=== PATIENT | female | born 2005 | race Caucasian/White ===

== ENCOUNTER 2025-03-05 10:38 | Emergency (ER) | payer OTHER, SELFPAY ==
[2025-03-05 10:41] VITALS: BP 156/94
[2025-03-05 11:32] VITALS: BP 116/73; BMI 24.5
[2025-03-05 12:05] LABS: % Basophils 0.3 % (0-2); % Eosinophils 0.3 % (0-6); % Immature Granulocytes 0.6 % (0-0.5); % Lymphocytes 12.9 % (20.5-51.1); % Monocytes 4.3 % (1.7-9.3); % Neutrophils 81.6 % (42.2-75.2); Absolute Immature Granulocytes 0.1 10^3/uL (0-0.05); Absolute Lymphocytes 1.5 10^3/uL (1.2-3.4); Absolute Monocytes 0.5 10^3/uL (0.1-0.6); Absolute Neutrophils 9.1 10^3/uL (1.4-6.5); Hematocrit 33.2 % (37.0-47.0); Hemoglobin 11.7 g/dL (12.0-16.0); Mean Corp Hgb Conc. 35.2 g/dL (33.0-37.0); Mean Corpuscular Hgb 30.2 pg (27.0-31.0); Mean Corpuscular Volume 85.6 fL (81.0-99.0); Nucleated Red Blood Cells % 0 %; Platelet Count 316 10^3/uL (130-400); Red Blood Cell Count 3.88 10^6/uL (4.20-5.40); Red Cell Dist. Width 13.4 % (11.5-14.5); White Blood Cell Count 11.2 10^3/uL (4.8-10.8)
[2025-03-05 12:26] LABS: ALT (SGPT) 11 U/L (0-35); AST (SGOT) 18 U/L (14-36); Albumin 3.9 g/dl (3.5-5.0); Alkaline Phosphatase 29 U/L (38-126); Blood Urea Nitrogen 6 mg/dl (7-17); Calcium 9.8 mg/dl (8.4-10.2); Carbon Dioxide 23 mmol/L (22-30); Chloride 107 mmol/L (98-107); Estimated Creatinine Clearance 108 ml/min; Glucose 82 mg/dl (70-99); Potassium 3.9 mmol/L (3.5-5.1); Sodium 138 mmol/L (135-145); Total Bilirubin 0.3 mg/dl (0.2-1.3); Total Protein 6.9 g/dl (6.3-8.2); eGFR > 60.00
[2025-03-05 12:29] LABS: Urine Albumin Negative (Neg - Trace); Urine Bilirubin Negative (Negative); Urine Character Clear (Clear); Urine Color Yellow; Urine Glucose Negative (Negative); Urine Ketone Negative (Negative); Urine Leukocyte 3+ (Negative); Urine Nitrite Negative (Negative); Urine Occult Blood Negative (Negative); Urine Urobilinogen Negative (Neg - 1+)
[2025-03-05 12:36] LABS: Urine Squamous Cell 26-30 /LPF (Few); Urine Urothelial Cell 0-2 /LPF (FEW)
[2025-03-05 12:38] LABS: Urine Red Blood Cell 0-2 /HPF (0-2)
[2025-03-05 12:40] LABS: Urine Bacteria Few (Negative)
--- NOTE | 2025-03-05 13:16 | ED.GENMED ---
History of Present Illness
General
Chief Complaint: Problems
Source: patient
Exam Limitations: none
Time Seen by Provider: 03/05/25 11:04
History of Present Illness
History of Present Illness:
Patient complaining of intermittent headaches. Has a long history of migraines these headaches feel similar but more frequent and somewhat worse. Blood pressure was checked at the base and was noted to be elevated. She also apparently had an
elevated blood pressure in November of this year. No other complaints, denying double vision abdominal pain vaginal bleeding focal neurologic symptoms etc.
Past History
Past History
ED Past Medical History: Other (Migraines)
Review of Systems
Review of Systems
All Other Systems: Not applicable
Constitutional: Denies fever
Respiratory: Reports no symptoms
Cardiac: Reports no symptoms
Phy Exam
Physical Exam
Physical Exam:
GENERAL: Alert and oriented in no apparent distress
EYE: Orbits normal. Discharge. Extraocular muscles intact
NECK: Supple, no significant adenopathy.
ENT: Pharynx without erythema
CARDIAC: Regular rate and rhythm without any obvious murmurs.
LUNGS: Clear breath sounds,normal
ABDOMEN: Soft, without focal tenderness or distention. Slight suprapubic fullness.
NEUROLOGICAL: Alert and oriented , grossly non-focal
SKIN: Warm and dry, no rash or lesion, no discoloration, skin intact.
MUSCULOSKELETAL: No edema,no deformity.Good color
PSYCH: Normal and appropriate interaction.
Course
Orders/Labs/Results
Orders:
Orders
03/05/25 11:33
IV Insert/Care/Rem.- Treatment PRN
US 2nd/3rd Trimester Urgent
Comment:
Reason For Exam: Hypertension/headaches/no care
03/05/25 11:53
Complete Blood Count/With Diff Urgent
Comprehensive Metabolic Panel Urgent
Urinalysis Reflex To Culture Urgent
Date Specimen was Collected: 03/05/25
Time Specimen was Collected: 11:36
Urine Microscopic Reflex Cult Urgent
Urine Culture Urgent
RAÚL Source: U
Specimen Description:
Date Specimen was Collected: 03/05/25
Time Specimen was Collected: 11:36
Abnormal Lab Results
03/05/25
11:53
WBC 11.2 H 10^3/uL
(4.8-10.8)
RBC 3.88 L 10^6/uL
(4.20-5.40)
Hgb 11.7 L g/dL
(12.0-16.0)
Hct 33.2 L %
(37.0-47.0)
Abs Immat Gran (auto) 0.1 H 10^3/uL
(0-0.05)
Absolute Neuts (auto) 9.1 H 10^3/uL
(1.4-6.5)
Immature Gran % 0.6 H %
(0-0.5)
Neutrophils % 81.6 H %
(42.2-75.2)
Lymphocytes % 12.9 L %
(20.5-51.1)
BUN 6 L mg/dl
(7-17)
Creatinine 0.5 L mg/dL
(0.6-1.0)
Alkaline Phosphatase 29 L U/L
(38-126)
Leukocyte Esterase Rfl 3+ A
(Negative)
Urine WBC (Reflex) 11-15 A /HPF
(0-5)
Urine Bacteria (Reflex) Few A
(Negative)
03/05/25 11:53
03/05/25 11:53
Vital Signs
Initial and Last Documented VS:
Initial Vital Signs
Temp Pulse Resp BP Pulse Ox
98.0 F 110 16 156/94 98
03/05/25 10:41 03/05/25 10:41 03/05/25 10:41 03/05/25 10:41 03/05/25 10:41
Last Documented Vital Signs
Temp Pulse Resp BP Pulse Ox
98.5 F 90 16 116/73 100
03/05/25 11:32 03/05/25 11:32 03/05/25 11:32 03/05/25 11:32 03/05/25 11:32
Information
Weeks gestation: Weeks: (17)
Location: Location: ([facility])
*Radiology
Radiology exam reviewed: radiology read reviewed (17-week [facility])
*Pulse Oximetry
Patient hypoxic: no
*Critical Care Note
Total Time (30-74mins, 75-104mins- exclusive of procedures): Not Applicable
Update Note
Update Note:
Patient stable. Ultrasound appropriate. No protein in the urine. Urine is contaminated. No UTI symptoms. LFTs are normal. Platelets are normal. Blood pressure is improved. Discussed with news broadcaster who will follow-up
ED Attending Note
-
Portions of this chart may have been created with voice recognition software.� Occasional wrong word or��sound alike� substitutions may have occurred due to the inherent limitations of voice recognition software.
Discharge Plan
Departure
Patient Disposition: Home (Routine Discharge)
Date of Disposition: 03/05/25
Time of Disposition: 13:16
Patient with high blood pressure during this ER visit?: Yes
Discharge Problem:
17 weeks, Headaches, Intermittent blood pressure elevations
Instructions: symptoms
Referrals:
Saurav Kuhn MD [Active] - Next open appointment
NONE,* [Family Provider] -
Activity Restrictions/Additional Instructions:
Tylenol only for the headaches
Call extension [phone] and speak to Day. Call [facility] for close follow-up for the
You also need to find a regular family physician for follow-up
Return with unusual headaches worsening headaches. Return with any headaches associated with other neurologic symptoms visual issues etc.
Interventions
Interventions:
*Risk Screen - Suicide Last Done: 03/05/25 10:41
*General Assessment Last Done: 03/05/25 11:32
*Neglect/Abuse Screening Last Done: 03/05/25 10:41
*ED- Fall Risk Assessment Last Done: 03/05/25 11:32
*ED COVID-19 Vaccine History Last Done: 03/05/25 11:32
ED-Female Genitourinary Assessment Last Done: 03/05/25 11:32
ED- Neurological Assessment Last Done: 03/05/25 11:32
Discharge Date and Time
Print Language: AUSTRIAN
[2025-03-05 13:22] VITALS: BP 116/64
== END 2025-03-05 13:45 | disposition home or self-care (01) ==
LOC: EMR 10:38
PROVIDERS: EMERGENCY PHYSICIAN Emergency Medicine
DX: O99.891 Other specified diseases and conditions complicating pregnancy (principal); R51.9 Headache, unspecified; R03.0 Elevated blood-pressure reading, without diagnosis of hypertension; O09.32 Supervision of pregnancy with insufficient antenatal care, second trimester; Z3A.17 17 weeks gestation of pregnancy
CPT/HCPCS: 99284; 76805; 80053; 81003; 81015; 85025; 87086

== ENCOUNTER 2025-10-05 01:03 | Emergency (ER) | payer SELFPAY ==
[2025-10-05] VITALS (8 sets, daily range): BP systolic 105–161; BP diastolic 64–100; BMI 27.6
[2025-10-05 01:54] LABS: Urine Character Clear (Clear)
[2025-10-05 02:17] LABS: Urine Squamous Cell 16-20 /LPF (Few)
[2025-10-05] MEDS: TYLENOL 1000 MG PO (03:20)
--- NOTE | 2025-10-05 03:22 | ED.GENMED ---
History of Present Illness
<Gianni Norris MD, Resident - Last Filed: 10/05/25 06:16>
General
Chief Complaint: Blood Pressure Problem
Source: patient
Time Seen by Provider: 10/05/25 02:00
History of Present Illness
History of Present Illness:
Patient is a 20-year-old female who is 8 weeks with a PMH of migraines and hypertension who presents to the ED with a progressive frontal headache that patient noticed upon awakening from sleep around 9:30 PM this evening. The
headache was constant, frontal, gradually progressed from 5/10 to 8/10 intensity, and was associated with seeing spots in her vision. Light and sound make the headache worse. Given her history of hypertension, the headache prompted the
patient to take her blood pressure, which was elevated. On presentation, BP was 161/100. Patient has years long history of headaches, but they are typically more mild than this. She has never taken any medications for her headaches. Patient did
have a similar headache episode to this 2 weeks ago, which self resolved without evaluation or treatment. Patient did not have any history of hypertension prior to the delivery mid-July. During labor, patient became hypertensive. Patient's
blood pressure was subsequently evaluated for 5 weeks with home blood pressure monitoring. At the 5-week michael, patient was told her blood pressure was normal and no longer needed to monitor. Denies chest pain, shortness of breath, dysuria,
urgency, abdominal pain, N/V/D, vision loss, weakness, numbness, slurred speech, or seizure-like activity.
Past History
<Gianni Norris MD, Resident - Last Filed: 10/05/25 06:16>
Past History
ED Past Medical History: Other (Migraines) and Other ( hypertension)
Social History
Tobacco: Non-smoker
Alcohol: None
Drug: None
Living: with family
Review of Systems
<Gianni Norris MD, Resident - Last Filed: 10/05/25 06:16>
Review of Systems
Constitutional: Denies fever, fatigue or chills
Respiratory: Denies trouble breathing
Cardiac: Denies chest pain
ABD/GI: Denies abdominal pain, nausea, vomiting or diarrhea
: Denies dysuria or urgency
Neurological: Reports headache; Denies weakness or numbness
Phy Exam
<Gianni Norris MD, Resident - Last Filed: 10/05/25 06:16>
Physical Exam
Physical Exam:
General: NAD. Conversant.
Neuro: A&O x 3. Motor, sensory intact lower extremities. No dysmetria. CN II through XII grossly intact. EOMI. PERRLA.
CV: RRR. S1, S2 noted. No M/R/G.
Pulm: CTAB. No wheezes or crackles.
GI: Soft, nontender. Nondistended. No RUQ tenderness.
Psych: Calm.
Course
<Gianni Norris MD, Resident - Last Filed: 10/05/25 06:16>
Orders/Labs/Results
Orders:
Orders
10/05/25 01:42
Urinalysis Urgent
Date Specimen was Collected: 10/05/25
Time Specimen was Collected: 01:39
Urine Microscopic Urgent
Date Specimen was Collected: 10/05/25
Time Specimen was Collected: 01:39
10/05/25 03:18
Acetaminophen [Tylenol] 1,000 mg .ROUTE .STK-MED ONE
10/05/25 03:20
Acetaminophen [Tylenol] 1,000 mg PO NOW STA
Abnormal Lab Results
10/05/25
01:42
Ur Leukocyte Esterase 3+ A
(Negative)
Urine RBC 7-10 A /HPF
(0-2)
Urine WBC 11-15 A /HPF
(0-5)
Urine Bacteria Moderate A
(Negative)
Vital Signs
Initial and Last Documented VS:
Initial Vital Signs
Temp Pulse Resp BP Pulse Ox
98.7 F 86 20 161/100 100
10/05/25 01:12 10/05/25 01:12 10/05/25 01:12 10/05/25 01:12 10/05/25 01:12
Last Documented Vital Signs
Temp Pulse Resp BP Pulse Ox
98.7 F 76 22 105/64 95
10/05/25 01:12 10/05/25 04:43 10/05/25 04:43 10/05/25 04:43 10/05/25 04:43
<Jesusita Arambula DO - Last Filed: 10/05/25 04:21>
Orders/Labs/Results
Orders:
Orders
10/05/25 01:42
Urinalysis Urgent
Date Specimen was Collected: 10/05/25
Time Specimen was Collected: 01:39
Urine Microscopic Urgent
Date Specimen was Collected: 10/05/25
Time Specimen was Collected: 01:39
10/05/25 03:18
Acetaminophen [Tylenol] 1,000 mg .ROUTE .STK-MED ONE
10/05/25 03:20
Acetaminophen [Tylenol] 1,000 mg PO NOW STA
Abnormal Lab Results
10/05/25
01:42
Ur Leukocyte Esterase 3+ A
(Negative)
Urine RBC 7-10 A /HPF
(0-2)
Urine WBC 11-15 A /HPF
(0-5)
Urine Bacteria Moderate A
(Negative)
Vital Signs
Initial and Last Documented VS:
Initial Vital Signs
Temp Pulse Resp BP Pulse Ox
98.7 F 86 20 161/100 100
10/05/25 01:12 10/05/25 01:12 10/05/25 01:12 10/05/25 01:12 10/05/25 01:12
Last Documented Vital Signs
Temp Pulse Resp BP Pulse Ox
98.7 F 76 22 105/64 95
10/05/25 01:12 10/05/25 04:43 10/05/25 04:43 10/05/25 04:43 10/05/25 04:43
<Gianni Norris MD, Resident - Last Filed: 10/05/25 06:16>
MDM/Problems Addressed
Differential Diagnosis Includes:
Migraine
Tension headache
Stroke/TIA
MDM/Problems Addressed:
Assessment: Patient is a 20-year-old female who is 8 weeks with PMH of migraines and hypertension who presents to the [place] ED with hypertension (161/100) and constant, frontal, progressive from 5�8/10 intensity headache
that started around 9:30 PM this evening. Headache is associated with photopsia and worsens with light and sound. No other symptoms. Neurological exam unremarkable. Headache improving with acetaminophen in the ED. Blood pressure normalizing, now
133/75. Suspect migraine.
Plan:
#Headache
Labs: UA
Acetaminophen
<Gianni Norris MD, Resident - Last Filed: 10/05/25 06:16>
*Pulse Oximetry
SaO2: 98
Oxygen Mode of Delivery: Room air
Patient hypoxic: no
*Critical Care Note
Total Time (30-74mins, 75-104mins- exclusive of procedures): Not Applicable
ED Attending Note
<Gianni Norris MD, Resident - Last Filed: 10/05/25 06:16>
-
Portions of this chart may have been created with voice recognition software.� Occasional wrong word or��sound alike� substitutions may have occurred due to the inherent limitations of voice recognition software.
<Jesusita Arambula DO - Last Filed: 10/05/25 04:21>
ED Attending Note
Patient seen and examined by attending physician: Yes
I performed a history and physical exam of patient and discussed management with resident, I reviewed resident's note and agree with documented findings and plan of care.: Yes
ED Attending Note:
This is a 20-year-old female who presents to the ED with complaints of frontal headache that began around 9:30 PM tonight, gradual in onset then progressively worse. No associated symptoms. She does admit to frequent headaches generally occurring
at least twice perhaps 3 times a week, similar in nature. Evaluated in this ED February of this year with somewhat similar headache and similar concerns for elevated blood pressure. Unremarkable evaluation at that time. And at that time she had been
17 weeks . Unremarkable ultrasound and blood pressure normalized without intervention.
She delivered a full-term 2 months ago and reportedly had elevated blood pressure only during her labor and delivery. Continue to monitor her blood pressure for 5 weeks without incidence of hypertension.
She is not nursing.
She takes no medicines on a daily basis.
Blood pressure initially elevated 160/100. Improved to 133/75 without intervention and is currently 105 systolic.
She has been given Tylenol for headache with complete resolution.
20-year-old female appears her stated age, bright and alert, pleasant, appears in no acute distress.
HEENT: Pupils are equal and reactive, extraocular muscles intact. Posterior pharynx is clear. Nares are patent without rhinorrhea.
Neck is supple, nontender, no meningismus. No adenopathy.
Heart is regular rate and rhythm.
Lungs are clear to auscultation. No respiratory distress.
Neuro: Awake alert and oriented x 3. No focal neurodeficits. Gait is guerrero and steady.
I suspect migraine versus tension headache.
I also suspect headache is cause for secondary elevation of blood pressure related to pain response. Situational hypertension.
No focal neurodeficits. No indication for CT.
Headache has resolved with Tylenol.
Patient currently lacks PCP and thus will be referred to our family practice residency clinic.
Encouraged to trial either Tylenol versus Excedrin Migraine if headache recurs. I also recommend she start a headache diary, keeping track of her headaches, their quality, duration excetra.
Establish with a PCP for prompt follow-up.
Return precautions discussed.
Discharge Plan
Departure
Patient Disposition: Home (Routine Discharge)
Date of Disposition: 10/05/25
Time of Disposition: 04:13
Patient with high blood pressure during this ER visit?: No
Discharge Problem:
migraine vs tension headache, Elevated blood pressure, situational
Instructions: Migraine in adults, Keeping track of your headaches
Prescriptions:
No Action
No Current Medications
0
Referrals:
[facility] [Outside] - Call in 1-3 days for appt
NONE,* [Family Provider, Internal Medicine]
Activity Restrictions/Additional Instructions:
Stay well-hydrated on a daily basis.
Attempt to get adequate sleep on a nightly basis.
For headaches, I want you to try Excedrin Migraine, taking 2 tablets promptly with onset of headache. You can take an additional 2 tablets 4 hours later if needed. Would recommend no more than 4 tablets in 1 day.
Try to keep track of your headaches, keeping a headache diary: Each day you have a headache, how long they last, the quality of the headache.
We recommend you establish with a primary care physician and you have been referred to our family practice residency clinic.
Interventions
Interventions:
*Risk Screen - Suicide Last Done: 10/05/25 01:12
*General Assessment Last Done: 10/05/25 01:12
*Neglect/Abuse Screening Last Done: 10/05/25 01:12
*ED- Fall Risk Assessment Last Done: 10/05/25 01:12
*ED COVID-19 Vaccine History Last Done: 10/05/25 01:12
*ED Influenza Vaccine History Last Done: 10/05/25 01:12
*Nursing Disposition Last Done: 10/05/25 04:43
ED- Cardiac Assessment Last Done: 10/05/25 02:18
ED- Neurological Assessment Last Done: 10/05/25 02:19
ED- Pulmonary Assessment Last Done: 10/05/25 02:24
Discharge Date and Time
Discharge Date/Time: 10/05/25 04:45
Print Language: IRAQI
== END 2025-10-05 04:45 | disposition home or self-care (01) ==
LOC: EMR 01:03
PROVIDERS: EMERGENCY PHYSICIAN Emergency Medicine
DX: G43.909 Migraine, unspecified, not intractable, without status migrainosus (principal); I10 Essential (primary) hypertension; Z87.59 Personal history of other complications of pregnancy, childbirth and the puerperium
CPT/HCPCS: 99283; 81003; 81015